=== PATIENT | female | born 1975 | race American Indian/Alaskan Native ===

== ENCOUNTER 2019-07-30 16:33 | Emergency (ER) | payer SELFPAY ==
[2019-07-30 16:41] VITALS: BP 128/71
--- NOTE | 2019-07-30 16:44 | Event Note ---
ED Screening Note ED Screening Note: fever cough and congestion rx albuterol pmh asthma psh csec lmp 07/03 This initial assessment/diagnostic orders/clinical plan/treatment(s) is/are subject to change based on patients health status, clinical progression and re- assessment by fellow clinical providers in the ED. Further treatment and workup at subsequent clinical providers discretion. Patient/guardian urged not to elope from the ED as their condition may be serious if not clinically assessed and managed. Initial orders include: flu swab xray ua labs
[2019-07-30 17:24] LABS: Basophils # (Auto) 0.1 K/mm3 (0.0-0.1); Eosinophils % (Auto) 0.7 % (0.0-4.3); Hematocrit 42.7 % (30.3-42.9); Hemoglobin 14.2 gm/dl (10.1-14.3); Lymphocytes # (Auto) 1.8 K/mm3 (1.2-5.4); Lymphocytes % (Auto) 31.8 % (13.4-35.0); Mean Corpuscular HGB Conc 33 % (30-34); Mean Corpuscular Volume 90 fl (79-97); Monocytes # (Auto) 0.9 K/mm3 (0.0-0.8); Monocytes % (Auto) 15.9 % (0.0-7.3); Platelet Count 203 K/mm3 (140-440); Red Blood Count 4.76 M/mm3 (3.65-5.03); Red Cell Distribution Width 14.9 % (13.2-15.2)
--- NOTE | 2019-07-30 17:31 | XRay Report ---
CHEST 2 VIEWS INDICATION: fever. COMPARISON: 05/03/2016 FINDINGS: Support devices: None. Heart: Within normal limits. Lungs/pleura: No acute air space or interstitial disease. No pneumothorax. Additional findings: None. IMPRESSION: 1. No acute findings. Signer Name: Chuck Perez MD Signed: 07/30/2019 5:27 PM Workstation Name: [id number]
[2019-07-30 17:49] LABS: BUN/Creatinine Ratio 8; Blood Urea Nitrogen 8 mg/dL (7-17); Calcium 9.4 mg/dL (8.4-10.2); Hemolysis Index 15
--- NOTE | 2019-07-30 20:00 | Emergency Department Report ---
- General Chief Complaint: Upper Respiratory Infection Stated Complaint: FEVER, BAD Time Seen by Provider: 07/30/19 16:42 Source: patient Mode of arrival: Ambulatory Limitations: No Limitations - History of Present Illness Initial Comments: Ms. Tolliver is a 44-year-old female female with history of asthma and bronchitis. Presents for URI symptoms today cough productive of yellow green, head congestion and sinus pain and pressure. patient states nocturnal wheezing. Symptoms are improved with albuterol inhaler and ibuprofen. States has been lingering for over a week at this point. Symptoms are exacerbated by environmental exposure. Symptoms are relieved by albuterol and ibuprofen. Patient denies shortness of breath at this time , does complain of postnasal drip with clear mucus and intermittent nausea. MD Complaint: cough, sore throat, rhinorrhea, nasal congestion Onset/Timin -: week(s) Severity: moderate Severity scale (0 -10): 4 Quality: aching Consistency: intermittent Improves With: NSAID, cough suppressant Worsens With: activity Associated Symptoms: chills, rhinorrhea, nasal congestion, cough, ear pain Treatments Prior to Arrival: "cold medicine" - Related Data Previous Rx's Medication Instructions Recorded Last Taken Type Albuterol INH(or & Nicu Only) 2 puff IH QID PRN #8.5 gram 07/30/19 Unknown Rx [ProAir HFA Inhaler] Azithromycin [Zithromax Z-BIANCA] 250 mg PO DAILY #6 tab 07/30/19 Unknown Rx Benzonatate [Tessalon Perles] 100 mg PO Q8HR PRN #30 capsule 07/30/19 Unknown Rx Ibuprofen [Motrin 800 MG tab] 800 mg PO Q8HR PRN #30 tablet 07/30/19 Unknown Rx predniSONE [Deltasone] 40 mg PO QDAY 5 Days #10 tab 07/30/19 Unknown Rx Allergies Allergy/AdvReac Type Severity Reaction Status Date / Time codeine Allergy Swelling Verified 07/30/19 16:34 ED Review of Systems ROS: Stated complaint: FEVER, BAD Other details as noted in HPI Constitutional: chills Eyes: denies: eye pain, eye discharge, vision change ENT: ear pain, congestion Respiratory: cough, wheezing Cardiovascular: denies: chest pain, palpitations Endocrine: no symptoms reported Gastrointestinal: nausea. denies: abdominal pain, vomiting, diarrhea Genitourinary: denies: urgency, dysuria, discharge Musculoskeletal: denies: back pain, joint swelling, arthralgia Skin: denies: rash, lesions Neurological: denies: headache, weakness, paresthesias Psychiatric: denies: anxiety, depression Hematological/Lymphatic: denies: easy bleeding, easy bruising ED Past Medical Hx - Past Medical History Previous Medical History?: Yes Hx Asthma: Yes - Surgical History Past Surgical History?: Yes Additional Surgical History: - Social History Smoking Status: Never Smoker Substance Use Type: None - Medications Home Medications: Home Medications Medication Instructions Recorded Confirmed Last Taken Type Albuterol INH(or & Nicu Only) 2 puff IH QID PRN #8.5 gram 07/30/19 Unknown Rx [ProAir HFA Inhaler] Azithromycin [Zithromax Z-BIANCA] 250 mg PO DAILY #6 tab 07/30/19 Unknown Rx Benzonatate [Tessalon Perles] 100 mg PO Q8HR PRN #30 capsule 07/30/19 Unknown Rx Ibuprofen [Motrin 800 MG tab] 800 mg PO Q8HR PRN #30 tablet 07/30/19 Unknown Rx predniSONE [Deltasone] 40 mg PO QDAY 5 Days #10 tab 07/30/19 Unknown Rx ED Physical Exam - General Limitations: No Limitations General appearance: alert, in no apparent distress - Head Head exam: Present: atraumatic, normocephalic - Eye Eye exam: Present: PERRL, EOMI - ENT ENT exam: Present: normal orophraynx, mucous membranes moist, TM's normal bilaterally - Neck Neck exam: Present: normal inspection, full ROM. Absent: tenderness, lymphadenopathy, thyromegaly - Respiratory Respiratory exam: Present: normal lung sounds bilaterally, wheezes (mild exp wheezes upper lobes ). Absent: respiratory distress, rales, rhonchi, stridor, chest wall tenderness - Cardiovascular Cardiovascular Exam: Present: regular rate, normal rhythm, normal heart sounds. Absent: systolic murmur, diastolic murmur, rubs, gallop - GI/Abdominal GI/Abdominal exam: Present: soft, normal bowel sounds. Absent: distended, tenderness, guarding, rebound, rigid, bruit, hernia - Rectal Rectal exam: Present: deferred - Extremities Exam Extremities exam: Present: normal inspection - Back Exam Back exam: Present: normal inspection, full ROM. Absent: tenderness, CVA tenderness (R), CVA tenderness (L), rash noted - Neurological Exam Neurological exam: Present: alert, oriented X3, CN II-XII intact, normal gait - Psychiatric Psychiatric exam: Present: normal affect, normal mood - Skin Skin exam: Present: warm, dry, intact, normal color. Absent: rash ED Course Vital Signs 07/30/19 07/30/19 16:38 18:50 Temperature 98.3 F Pulse Rate 88 Respiratory 16 18 Rate Blood Pressure 128/71 O2 Sat by Pulse 98 Oximetry ED Medical Decision Making - Lab Data Result diagrams: 07/30/19 17:05 07/30/19 17:05 - Radiology Data Radiology results: report reviewed, image reviewed no infiltrates no opacities - Medical Decision Making cxr normal, wheezing is improved with medications taken prior to arrival c Critical care attestation.: If time is entered above; I have spent that time in minutes in the direct care of this critically ill patient, excluding procedure time. ED Disposition Clinical Impression: Bronchitis Disposition: - TO HOME OR SELFCARE Is pt being admited?: No Does the pt Need Aspirin: No Condition: Stable Instructions: Chronic Bronchitis (ED), Upper Respiratory Infection (ED) Prescriptions: predniSONE [Deltasone] 40 mg PO QDAY 5 Days #10 tab Ibuprofen [Motrin 800 MG tab] 800 mg PO Q8HR PRN #30 tablet PRN Reason: pain fever Albuterol INH(or & Nicu Only) [ProAir HFA Inhaler] 2 puff IH QID PRN #8.5 gram PRN Reason: Shortness Of Breath Benzonatate [Tessalon Perles] 100 mg PO Q8HR PRN #30 capsule PRN Reason: cough Azithromycin [Zithromax Z-BIANCA] 250 mg PO DAILY #6 tab Referrals: [facility] [Outside] - 3-5 Days Forms: Work/School Release Form(ED) Time of Disposition: 20:09
== END 2019-07-30 20:17 | disposition home or self-care (01) ==
LOC: ED 16:33
DX: J40 Bronchitis, not specified as acute or chronic (principal); Z79.899 Other long term (current) drug therapy; Z88.5 Allergy status to narcotic agent
CPT/HCPCS: 36415; 71046; 80048; 85025; 87400

== ENCOUNTER 2022-03-20 14:44 | Emergency (ER) | payer SELFPAY | END 2022-03-21 02:00 | disposition left against medical advice (07) | LOC: ED 14:44 | DX: M54.9 Dorsalgia, unspecified (principal); Z53.21 Procedure and treatment not carried out due to patient leaving prior to being seen by health care provider ==